=== PATIENT | male | born 1985 | race American Indian/Alaskan Native ===

== ENCOUNTER 2019-06-20 08:45 | Day surgery (SDC) | payer OTHER ==
[2019-06-20 09:32] LABS: Basophils % (Auto) 0.8 % (0.0-1.8); Eosinophils # (Auto) 0.2 K/mm3 (0.0-0.4); Eosinophils % (Auto) 3.7 % (0.0-4.3); Hematocrit 40.2 % (35.5-45.6); Hemoglobin 13.5 gm/dl (11.8-15.2); Lymphocytes % (Auto) 39.4 % (13.4-35.0); Mean Corpuscular HGB Conc 34 % (32-34); Mean Corpuscular Volume 87 fl (84-94); Monocytes # (Auto) 0.4 K/mm3 (0.0-0.8); Monocytes % (Auto) 8.2 % (0.0-7.3); Platelet Count 263 K/mm3 (140-440); Red Blood Count 4.64 M/mm3 (3.65-5.03); Red Cell Distribution Width 14.4 % (13.2-15.2)
[2019-06-20 09:43] LABS: INR 1.03 (0.87-1.13)
[2019-06-20 09:44] LABS: BUN/Creatinine Ratio 14; Blood Urea Nitrogen 13 mg/dL (9-20); Calcium 9.5 mg/dL (8.4-10.2); Hemolysis Index 72
[2019-06-20 09:45] LABS: Partial Thromboplastin Time 32.1 Sec. (24.2-36.6)
[2019-06-20] MEDS: SODIUM CHLORIDE 0.9% 500 ML 500 ML IV SCH ×2 (12:18→14:30)
[2019-06-20] MEDS ORDERED: HEPARIN 10,000 UNITS/10 ML VIAL ONE (14:07)
[2019-06-20] MEDS ORDERED: ceFAZolin/Water 2 GM/20 ML 2 GM/20 ML SYRINGE IV ONE (14:07)
[2019-06-20] MEDS ORDERED: HEPARIN/NS 5000 UNIT/500ML 1,000 ML IR ONE (14:07)
[2019-06-20] MEDS ORDERED: LIDOCAINE (2%) 20 MG/1 ML VIAL 20 ML MDV INFILTRATI ONE (14:07)
[2019-06-20] MEDS: MIDAZOLAM 2 MG/2 ML INJ ONE ×3 (14:36→14:50)
[2019-06-20] MEDS: fentaNYL 100 MCG/2 ML INJ ONE ×3 (14:36→14:50)
[2019-06-20] MEDS ORDERED: APIXABAN 5 MG TAB PO ONE (15:45)
[2019-06-20] MEDS ORDERED: APIXABAN 5 MG TAB ONE (15:45)
[2019-06-20 15:57] VITALS: BP 113/67
--- NOTE | 2019-06-20 16:02 | Short Stay Summary ---
Short Stay Documentation Date of service: 06/20/19 Narrative H&P: 33 year old male with - History Principal diagnosis: SVC syndrome, chronic DVT RUE H&P: obtained from office Past Surgical History: No surgical history - Allergies and Medications Current Medications: Allergies No Known Allergies Allergy (Verified 06/20/19 08:59) Home Medications Medication Instructions Recorded Confirmed Last Taken Type Apixaban [Eliquis starter pack] 5 mg PO BID 06/20/19 06/20/19 06/20/19 History Apixaban [Eliquis] 5 mg PO BID #60 tablet 06/20/19 Unknown Rx Ferrous Sulfate [Iron 325 MG] 325 mg PO DAILY 06/20/19 06/20/19 06/20/19 History Mv,Hayden,Min/Iron/Folic Acid/Lut 1 each PO DAILY 06/20/19 06/20/19 06/20/19 History [Complete Multi Tablet] Active Medications Sodium Chloride (Nacl 0.9% 500 Ml) 500 mls @ 50 mls/hr IV DIRECT ROGELIO Last Admin: 06/20/19 14:30 Dose: 50 mls/hr Documented by: - Physical exam General appearance: no acute distress HEENT: Other (minimal facial swelling) Lungs: Normal air movement Gastrointestinal: normal Extremities: normal temperature, normal color - Brief post op/procedure progress note Date of procedure: 06/20/19 Pre-op diagnosis: facial swelling Post-op diagnosis: same Procedure: 1. Ultrasound-guided access of the right common femoral vein 2. Venography of the right lower extremity and IVC 3. Selection of the SVC with venography 4. Selection of the azygos vein with venography Anesthesia: local (With conscious sedation) Surgeon: MANSOOR BARRON Estimated blood loss: minimal Condition: stable - Hospital course Hospital course: Patient tolerated procedure well. Ready for discharge. 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
--- NOTE | 2019-06-20 17:10 | Operative Report ---
Operative Report Operative Report: EXAM: 1. Ultrasound-guided access of the right common femoral vein 2. Venography of the right lower extremity and IVC 3. Selection of the SVC with venography 4. Selection of the azygos vein with venography DATE: 06/20/2019 EMPLOYMENT SECURITY OFFICER: MANSOOR BARRON MD Indication: Abnormal CT report with head swelling and concern for SVC syndrome. Preoperative diagnosis: Head and neck swelling Postoperative diagnosis: SVC syndrome MEDICATIONS: Please see nursing report for full details. DEVICES: None. CONTRAST: Please see Marketing Underwriter report for full details PROCEDURE: The risks, benefits, and alternatives were discussed with the patient; written informed consent was obtained. Patient was brought to the angiography suite and the groins were prepped and draped in a sterile fashion. The right common femoral vein was assessed with ultrasound was patent. Under direct ultrasound guidance, the right common femoral vein was accessed with a 21-gauge micropuncture needle. 0.018 inch wire was passed into the aorta. Needle was exchanged for transitional dilator. Wire was exchanged for a 0.035 inch wire. Transitional dilator was exchanged ultimately for 6 Chinese sheath. Patient was heparinized. 6 Chinese MPA was then brought to the SVC and used to select the SVC. Digital subtraction angiography was performed. I attempted to select the left innominate vein but this was unsuccessful. I then attempted to select the right innominate vein but this was unsuccessful. I then attempted to select the right internal jugular vein but that was unsuccessful. I then selected the azygos vein and digital subtraction angiography was performed. Glidewire advantage and Bentson wire were used to attempt to select these vessels. Pigtail catheter was then placed in the SVC and digital subtraction angiography was performed with power injection. Digital subtraction angiography was then performed through the sheath and afterwards, all wires, catheters, and sheaths were removed. Pressure was held until hemostasis was achieved. Sterile dressing applied. FINDINGS: Right external iliac vein, and common iliac vein were patent. The IVC was patent. The infra azygous SVC was patent. The supra azygos SVC was occluded. There was a large chronic thrombus in the supra azygos SVC partially extending into the proximal azygos vein. The azygos vein was hypertrophic compatible with chronic occlusions and except for the portion extending into the SVC, it was widely patent. 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 IMPRESSION: Successful selection of the azygos vein, SVC, and with venography of the upper and lower central veins.
== END 2019-06-20 16:45 | disposition home or self-care (01) ==
LOC: CATHLABREC 08:45
PROVIDERS: ATTEND Radiology Diagnostic Radiology
DX: I87.1 Compression of vein (principal); R22.1 Localized swelling, mass and lump, neck; R22.0 Localized swelling, mass and lump, head; Z86.718 Personal history of other venous thrombosis and embolism; Z87.891 Personal history of nicotine dependence; Z79.899 Other long term (current) drug therapy; Z79.01 Long term (current) use of anticoagulants
CPT/HCPCS: 36010; 36415; 75827; 80048; 85025; 85610; 85730; 99156; 99157; C1769; C1894; J0690; J1644; J2250; J3010; J7040; 36011; Q9967